=== PATIENT | female | born 1990 | race African-American/Black ===

== ENCOUNTER → 2018-11-07 | Outpatient (CLI) | payer MEDICAID ==
--- NOTE | 2018-11-07 11:48 | Diagnostic Imaging Report ---
PROCEDURE: US Non-ob pelvis comp/trans. TECHNIQUE: Multiple realtime grayscale images were obtained of the pelvis in various projections endovaginally. Transabdominal imaging was also performed. INDICATION: Right ovarian cyst and polycystic ovarian syndrome. The uterus measures 7.8 x 5.1 x 3.1 cm. Endometrium is 5 mm in thickness. No myometrial mass is identified. The right ovary measures 4.5 x 3.4 x 1.9 cm and the left ovary measures 3.4 x 2.8 x 2.1 cm. The ovaries contain small follicles. There is blood flow to the ovaries. No adnexal mass is seen. There is a small amount of free fluid in the posterior cul-de-sac. IMPRESSION: Unremarkable transabdominal and transvaginal pelvic ultrasound. Dictated by: Dictated on workstation # [id number]
== END ==
LOC: RAD 10:48
PROVIDERS: ATTEND Obstetrics & Gynecology
DX: N83.201 Unspecified ovarian cyst, right side (principal)
CPT/HCPCS: 76830; 76856